=== PATIENT | male | born 1990 | race African-American/Black ===

== ENCOUNTER 2018-09-10 18:15 | Emergency (ER) | payer MEDICAID ==
[~2018-09-10] VITALS: Ht 167.6 cm; Wt 73.2 kg
[2018-09-10 21:00] VITALS: BP 127/78
== END 2018-09-10 21:57 | disposition home or self-care (01) ==
LOC: EMS 18:15
DX: N48.89 Other specified disorders of penis (principal)

== ENCOUNTER 2020-07-22 06:23 | Emergency (ER) | payer MEDICAID ==
[~2020-07-22] VITALS: Ht 170.2 cm; Wt 71.4 kg
[2020-07-22 06:39] VITALS: BP 129/87
[2020-07-22] MEDS ORDERED: NEOMYCIN/BACITRACIN/POLYMYXIN B OINTMENT PACKET TP ONE (07:00)
== END 2020-07-22 07:05 | disposition home or self-care (01) ==
LOC: EMS 06:25
DX: S10.96XA Insect bite of unspecified part of neck, initial encounter (principal); S00.86XA Insect bite (nonvenomous) of other part of head, initial encounter; F12.90 Cannabis use, unspecified, uncomplicated; F19.90 Other psychoactive substance use, unspecified, uncomplicated; F17.210 Nicotine dependence, cigarettes, uncomplicated; W57.XXXA Bitten or stung by nonvenomous insect and other nonvenomous arthropods, initial encounter; Y93.89 Activity, other specified; Y92.89 Other specified places as the place of occurrence of the external cause; Y99.8 Other external cause status
CPT/HCPCS: 99283

== ENCOUNTER 2020-09-20 19:30 | Emergency (ER) | payer MEDICAID ==
[~2020-09-20] VITALS: Ht 170.2 cm; Wt 75.0 kg
[2020-09-20] MEDS ORDERED: PERTUSS(ACELL),DIPH,TET VAC/PF 0.5 ML SYRINGE IM. ONE (20:15)
[2020-09-20] MEDS ORDERED: IBUPROFEN 600 MG TABLET PO ONE (20:15)
[2020-09-20 21:26] VITALS: BP 120/66
== END 2020-09-20 21:45 | disposition home or self-care (01) ==
LOC: EMS 19:30
DX: S97.111A Crushing injury of right great toe, initial encounter (principal); W23.0XXA Caught, crushed, jammed, or pinched between moving objects, initial encounter; Y93.89 Activity, other specified; Y92.89 Other specified places as the place of occurrence of the external cause; Y99.8 Other external cause status
CPT/HCPCS: 90471; 90715; 99283

== ENCOUNTER 2022-10-08 07:50 | Emergency (ER) | payer MEDICAID, OTHER ==
[~2022-10-08] VITALS: Ht 170.2 cm; Wt 80.0 kg
[2022-10-08 07:56] VITALS: BP 138/74; PULSE 107; RESP 16; TEMP 98.1
[2022-10-08] MEDS ORDERED: DOXY-354 PO (08:08)
[2022-10-08] MEDS ORDERED: IBUP-1554 PO (08:08)
== END 2022-10-08 08:18 | disposition home or self-care (01) ==
LOC: EMS 07:56
DX: S10.96XA Insect bite of unspecified part of neck, initial encounter (principal); L73.9 Follicular disorder, unspecified; F17.210 Nicotine dependence, cigarettes, uncomplicated; F12.90 Cannabis use, unspecified, uncomplicated; F15.90 Other stimulant use, unspecified, uncomplicated; W57.XXXA Bitten or stung by nonvenomous insect and other nonvenomous arthropods, initial encounter; Y93.89 Activity, other specified; Y92.89 Other specified places as the place of occurrence of the external cause; Y99.8 Other external cause status
CPT/HCPCS: 99283; Z7502

== ENCOUNTER 2024-07-10 23:05 | Emergency (ER) | payer OTHER ==
[~2024-07-10] VITALS: Ht 170.2 cm; Wt 100.0 kg
[~2024-07-10 23:05] MED LIST: DOXY-354 PO; IBUP-1554 PO
[2024-07-10 23:20] VITALS: BP 148/90; PULSE 65; RESP 16; TEMP 98.3; O2SAT 99
[2024-07-10] MEDS ORDERED: ACET-66 PO (23:55)
[2024-07-10] MEDS ORDERED: IBUP-1554 PO (23:55)
[2024-07-10] MEDS: IBUPROFEN 200 MG TABLET PO ONE (23:59)
[2024-07-10] MEDS: ACETAMINOPHEN 500 MG TABLET PO ONE (23:59)
== END 2024-07-11 00:05 | disposition home or self-care (01) ==
LOC: EMS 23:05
DX: F41.1 Generalized anxiety disorder (principal); F12.90 Cannabis use, unspecified, uncomplicated; F17.210 Nicotine dependence, cigarettes, uncomplicated; V89.2XXA Person injured in unspecified motor-vehicle accident, traffic, initial encounter; Y93.89 Activity, other specified; Y92.410 Unspecified street and highway as the place of occurrence of the external cause; Y99.8 Other external cause status
CPT/HCPCS: 99283